=== PATIENT | male | born 1970 | race Caucasian/White ===

== ENCOUNTER 2019-01-03 20:33 | Emergency (ER) | payer MEDICAID, OTHER ==
[~2019-01-03] VITALS: Ht 172.7 cm; Wt 81.6 kg
[2019-01-03 22:26] LABS: Basophils # (auto) 0 uL; Basophils % (auto) 0.9 % (0.0-2.0); Eosinophils # (auto) 0 uL; Hematocrit 44.6 % (41.0-53.0); Lymphocytes # (auto) 1.5 uL; Lymphocytes % (auto) 33.9 % (10.0-50.0); Mean Corpuscular Hemoglobin 28.2 pg (28.0-32.0); Mean Corpuscular Hgb Conc. 33.7 g/dL (32.0-36.0); Mean Corpuscular Volume 83.8 fL (80.0-100.0); Monocytes # (auto) 0.3 uL; Monocytes % (auto) 7.2 % (0.0-12.0); Neutrophils # (auto) 2.5 uL; Nucleated Red Blood Cells % 0.1 %; Platelet Count (auto) 336 10^3/uL (140-450); Red Blood Cells 5.33 10^6/uL (4.5-5.90); Red Cell Distribution Width 15.4 % (11.8-14.3); White Blood Cell 4.4 10^3/uL (4.4-10.8)
[2019-01-03 22:28] LABS: Salicylate < 1.7 mg/dL (2.8-20.0)
[2019-01-03 22:29] LABS: Acetaminophen < 2.0 ug/mL (10-30)
[2019-01-03 22:30] LABS: INR 1.01 (0.9-1.15); Partial Thromboplastin Time 25.1 sec (23.64-32.05)
[2019-01-03 22:35] LABS: Blood Urea Nitrogen 12 mg/dL (7-18); Calcium 8.4 mg/dL (8.5-10.1); Chloride 105 mmol/L (98-107); Potassium 3.8 mmol/L (3.5-5.1); Sodium 144 mmol/L (136-145)
[2019-01-03 22:38] LABS: Albumin 4.3 g/dL (3.4-5.0); Carbon Dioxide 23 mmol/L (21-32); GFR African American 84 mL/min; GFR Non-African American 69 mL/min; Glucose 85 mg/dL (74-106)
[2019-01-03 22:47] LABS: Alanine Aminotransferase 46 U/L (16-61); Alkaline Phosphatase 66 U/L (45-117); Aspartate Aminotransferase 57 U/L (15-37); Bilirubin, Total 0.5 mg/dL (0.2-1.0); Total Protein 8.3 g/dL (6.4-8.2)
[2019-01-03 22:57] LABS: Anion Gap 16 (5-15); BUN/Creatinine Ratio 10.1
[2019-01-03] MEDS ORDERED: SODIUM CHLORIDE 0.9% 2,000 ML IV ONE (23:30)
[2019-01-03] MEDS ORDERED: GASTROGRAFIN 30 ML SOL XX ONE (23:45)
[2019-01-04] MEDS ORDERED: GASTROGRAFIN 120 ML SOL ONE (00:05)
[2019-01-04] MEDS ORDERED: MVI in SODIUM CHLORIDE 0.9% 1,010 ML IV ONE (00:10)
[2019-01-04] MEDS ORDERED: THIAMINE 100mg/ml INJ (200mg/2ml VIAL) IV ONE (00:15)
[2019-01-04] MEDS: MAGNESIUM SULFATE 1GM/100ML 100 ML IV SCH ×3 (00:56→02:25)
[2019-01-04 02:00] VITALS: BP 123/78
== END 2019-01-04 02:34 | disposition home or self-care (01) ==
LOC: EDBD 20:33 → ER 20:33
DX: G92 Toxic encephalopathy (principal); F10.129 Alcohol abuse with intoxication, unspecified; F41.9 Anxiety disorder, unspecified; K21.9 Gastro-esophageal reflux disease without esophagitis; Y90.8 Blood alcohol level of 240 mg/100 ml or more
CPT/HCPCS: 36415; 70360; 70450; 71045; 80053; 80320; 80329; 82140; 83605; 84484; 85025; 85610; 85730; 87040; 93005; 94761; 96361; 96374; 99284; J3411; J3475; J7030; Q9963

== ENCOUNTER 2021-01-15 14:16 | Emergency (ER) | payer MEDICAID, OTHER ==
[~2021-01-15] VITALS: Ht 167.6 cm; Wt 74.8 kg
[2021-01-15] MEDS ORDERED: GASTROGRAFIN 120 ML SOL ONE ×2 (15:56→16:22)
[2021-01-15] MEDS ORDERED: EZ-GAS II GRANULES (RADIOLOGY USE) PO ONE (16:22)
[2021-01-15] MEDS ORDERED: IOHEXOL 300 MG/ML 100ML BOTTLE IJ ONE (16:24)
[2021-01-15] MEDS ORDERED: BARIUM SULFATE 98% 340 GM PWDR ONE (16:26)
[2021-01-15] MEDS ORDERED: SODIUM CHLORIDE 0.9% 1,000 ML IV ONE (17:30)
[2021-01-15 18:30] VITALS: BP 123/74
== END 2021-01-15 18:32 | disposition home or self-care (01) ==
LOC: ER 14:16
DX: K22.0 Achalasia of cardia (principal); K21.9 Gastro-esophageal reflux disease without esophagitis
CPT/HCPCS: 74220; 96360; 99283; Q9963